=== PATIENT | female | born 1980 | race Caucasian/White ===

== ENCOUNTER 2017-11-25 22:21 | Emergency (ER) | payer MEDICAID ==
[~2017-11-25] VITALS: Ht 167.6 cm; Wt 56.0 kg
[~2017-11-25 22:21] MED LIST: ESCI10TA45 PO; NAPR-232 PO
[2017-11-25 22:32] VITALS: BP 139/71
== END 2017-11-26 01:27 | disposition left against medical advice (07) ==
LOC: ER 22:24
DX: R10.9 Unspecified abdominal pain (principal); Z53.21 Procedure and treatment not carried out due to patient leaving prior to being seen by health care provider

== ENCOUNTER 2017-11-27 17:09 | Emergency (ER) | payer MEDICAID ==
[~2017-11-27] VITALS: Ht 167.6 cm; Wt 56.1 kg
[2017-11-27 17:39] VITALS: BP 114/63
== END 2017-11-27 20:00 | disposition left against medical advice (07) ==
LOC: ER 17:10
DX: R51 Headache (principal); Z53.21 Procedure and treatment not carried out due to patient leaving prior to being seen by health care provider

== ENCOUNTER 2018-06-28 15:18 | Emergency (ER) | payer MEDICAID ==
[~2018-06-28] VITALS: Ht 167.6 cm; Wt 56.0 kg
[~2018-06-28 15:18] MED LIST changes: +MAGN296S50 PO
[2018-06-28 15:38] VITALS: BP 118/78
== END 2018-06-28 17:44 | disposition left against medical advice (07) ==
LOC: ER 15:19
DX: K59.00 Constipation, unspecified (principal); Z53.21 Procedure and treatment not carried out due to patient leaving prior to being seen by health care provider

== ENCOUNTER 2018-07-04 09:19 | Emergency (ER) | payer MEDICAID ==
[~2018-07-04] VITALS: Ht 167.6 cm; Wt 56.8 kg
[2018-07-04 09:25] VITALS: BP 148/59
[2018-07-04] MEDS ORDERED: ketorolac trometh inj. 60 MG/2 ML VIAL IM ONE (10:05)
[2018-07-04] MEDS ORDERED: IBUP-1984 PO (10:25)
[2018-07-04] MEDS ORDERED: PENI500T2 PO (10:25)
== END 2018-07-04 10:40 | disposition home or self-care (01) ==
LOC: ER 09:19
DX: J02.9 Acute pharyngitis, unspecified (principal); M25.551 Pain in right hip; F12.90 Cannabis use, unspecified, uncomplicated; F15.90 Other stimulant use, unspecified, uncomplicated; M79.18 Myalgia, other site; Z59.0 Homelessness; Z56.0 Unemployment, unspecified; Z98.890 Other specified postprocedural states; Z87.442 Personal history of urinary calculi; Z79.899 Other long term (current) drug therapy
CPT/HCPCS: 72040; 96372; 99283; J1885

== ENCOUNTER 2018-07-08 13:52 | Emergency (ER) | payer MEDICAID ==
[~2018-07-08] VITALS: Ht 167.6 cm; Wt 59.1 kg
[~2018-07-08 13:52] MED LIST changes: +IBUP-1984 PO; +PENI500T2 PO
[2018-07-08 14:03] VITALS: BP 111/64
[2018-07-08] MEDS ORDERED: aspirin 325mg tablet PO ONE (15:10)
[2018-07-08] MEDS ORDERED: acetaminophen 325mg tablet PO ONE (15:10)
[2018-07-08] MEDS ORDERED: ketorolac trometh inj. 60 MG/2 ML VIAL IM ONE (15:10)
[2018-07-08] MEDS ORDERED: diphenhydrAMINE 25mg capsule PO ONE (15:10)
[2018-07-08] MEDS ORDERED: proCHLORperazine 10 MG/2 ml inj IM ONE (15:10)
== END 2018-07-08 15:45 | disposition home or self-care (01) ==
LOC: ER 13:52
DX: R06.02 Shortness of breath (principal); R50.9 Fever, unspecified; R05 Cough; R09.81 Nasal congestion; F12.90 Cannabis use, unspecified, uncomplicated; F15.90 Other stimulant use, unspecified, uncomplicated; Z59.0 Homelessness; Z56.0 Unemployment, unspecified; Z98.890 Other specified postprocedural states; Z79.899 Other long term (current) drug therapy
CPT/HCPCS: 71045; 93005; 96372; 99283; J0780; J1885; Q0163

== ENCOUNTER 2018-09-28 04:30 | Emergency (ER) | payer MEDICAID ==
[~2018-09-28] VITALS: Ht 167.6 cm; Wt 60.3 kg
[~2018-09-28 04:30] MED LIST changes: -IBUP-1984 PO; -PENI500T2 PO
[2018-09-28 05:51] VITALS: BP 156/96
== END 2018-09-28 06:03 | disposition left against medical advice (07) ==
LOC: ER 04:31
DX: M79.671 Pain in right foot (principal); M79.672 Pain in left foot; Z53.21 Procedure and treatment not carried out due to patient leaving prior to being seen by health care provider

== ENCOUNTER 2019-03-14 18:44 | Emergency (ER) | payer MEDICAID ==
[~2019-03-14] VITALS: Ht 167.6 cm; Wt 56.8 kg
[2019-03-14 19:25] VITALS: BP 131/51
--- NOTE | 2019-03-14 19:25 | NUR ---
FOOT SOAKING IN BETADINE/WATER, PER PROVIDER'S REQUEST
[2019-03-14 19:50] LABS: BASOPHILS % (AUTO) 0.4 % (0-1); EOSINOPHILS # (AUTO) 0.1 X10'3 (0-0.9); EOSINOPHILS % (AUTO) 1.2 % (0-6); HEMATOCRIT 37.5 % (35.0-45.0); HEMOGLOBIN 12.8 g/dl (12.0-16.0); LYMPHOCYTES # (AUTO) 2.3 X10'3 (1.1-4.8); LYMPHOCYTES % (AUTO) 33.7 % (21-51); MEAN CORPUSCULAR HGB CONC 34.1 g/dL (33.0-36.5); MEAN PLATELET VOLUME 9.1 FL (7.4-10.4); MONOCYTES # (AUTO) 0.6 X10'3 (0-0.9); MONOCYTES % (AUTO) 8.7 % (2-12); NEUTROPHILS # (AUTO) 3.8 X10'3 (1.8-7.7); PLATELET COUNT 229 X10'3 (140-440); RED BLOOD COUNT 4.41 X10'6 (4.20-5.60); RED CELL DISTRIBUTION WIDTH 14.9 % (11.5-14.5); WHITE BLOOD COUNT 6.8 X10'3 (4.5-11.0)
[2019-03-14 19:55] LABS: ALBUMIN 3.7 G/DL (3.4-5.0); ANION GAP 12 (8-16); BLOOD UREA NITROGEN 10 MG/DL (7-18); BUN/CREATININE RATIO 11.2 (6.6-38.0); CALCIUM 8.8 MG/DL (8.5-10.1); CHLORIDE 104 MMOL/L (99-107); CREATININE 0.89 MG/DL (0.40-0.90); GLUCOSE 68 MG/DL (70-104); SODIUM 141 MMOL/L (135-145); TOTAL CARBON DIOXIDE 25.5 MMOL/L (24-32); eGFR 71 ML/MIN
[2019-03-14] MEDS ORDERED: CEPH-572 PO (20:02)
[2019-03-14] MEDS ORDERED: DOXY100C2 PO (20:02)
[2019-03-14] MEDS ORDERED: ACET-2119 PO (20:05)
[2019-03-14] MEDS ORDERED: IBUP-1984 PO (20:05)
== END 2019-03-14 20:15 | disposition home or self-care (01) ==
LOC: ER 18:45
DX: S91.104A Unspecified open wound of right lesser toe(s) without damage to nail, initial encounter (principal); L03.115 Cellulitis of right lower limb; F41.9 Anxiety disorder, unspecified; F32.9 Major depressive disorder, single episode, unspecified; F12.90 Cannabis use, unspecified, uncomplicated; F15.90 Other stimulant use, unspecified, uncomplicated; Z59.0 Homelessness; Z56.0 Unemployment, unspecified; Z87.442 Personal history of urinary calculi; Z98.890 Other specified postprocedural states; Z79.899 Other long term (current) drug therapy; W57.XXXA Bitten or stung by nonvenomous insect and other nonvenomous arthropods, initial encounter; Y93.89 Activity, other specified; Y92.89 Other specified places as the place of occurrence of the external cause; Y99.8 Other external cause status
CPT/HCPCS: 36415; 80048; 83605; 85025; 99283; 99284

== ENCOUNTER 2019-04-06 22:10 | Emergency (ER) | payer MEDICAID ==
[~2019-04-06] VITALS: Ht 167.6 cm; Wt 56.8 kg
[2019-04-06 22:13] VITALS: BP 124/80
[2019-04-06] MEDS ORDERED: CefTRIAXone 1000mg IM Kit (w/lidocaine diluent) IM ONE (22:35)
[2019-04-06] MEDS ORDERED: TETanus/Pertussis (Acell)/Diphther VAC/PF (Tdap-Adult) 0.5ml syringe IM ONE (22:35)
[2019-04-06] MEDS ORDERED: ketorolac trometh inj. 60 MG/2 ML VIAL IM ONE (22:35)
[2019-04-06 23:03] LABS: HEMOGLOBIN 12.8 g/dl (12.0-16.0)
[2019-04-06 23:04] LABS: BASOPHILS % (AUTO) 0.4 % (0-1); EOSINOPHILS # (AUTO) 0.2 X10'3 (0-0.9); EOSINOPHILS % (AUTO) 1.7 % (0-6); LYMPHOCYTES # (AUTO) 2.6 X10'3 (1.1-4.8); LYMPHOCYTES % (AUTO) 26.4 % (21-51); MEAN CORPUSCULAR HEMOGLOBIN 29.5 PG (27.0-31.0); MEAN CORPUSCULAR HGB CONC 34.4 g/dL (33.0-36.5); MEAN CORPUSCULAR VOLUME 85.6 FL (78-98); MEAN PLATELET VOLUME 8.5 FL (7.4-10.4); MONOCYTES # (AUTO) 0.7 X10'3 (0-0.9); MONOCYTES % (AUTO) 7.2 % (2-12); NEUTROPHILS # (AUTO) 6.4 X10'3 (1.8-7.7); NEUTROPHILS % (AUTO) 64.3 % (42-75); PLATELET COUNT 212 X10'3 (140-440); RED BLOOD COUNT 4.33 X10'6 (4.20-5.60); RED CELL DISTRIBUTION WIDTH 14.2 % (11.5-14.5)
[2019-04-06 23:12] LABS: ALANINE AMINOTRANSFERASE 23 U/L (12-78); ALBUMIN 3.5 G/DL (3.4-5.0); ALBUMIN/GLOBULIN RATIO 1.1 (1.1-1.5); ALKALINE PHOSPHATASE 70 IU/L (46-116); ANION GAP 7 (8-16); ASPARTATE AMINO TRANSFERASE 16 U/L (10-37); BILIRUBIN,TOTAL 0.2 MG/DL (0.1-1.0); BLOOD UREA NITROGEN 13 MG/DL (7-18); BUN/CREATININE RATIO 15.1 (6.6-38.0); CALCIUM 8.5 MG/DL (8.5-10.1); CHLORIDE 105 MMOL/L (99-107); CREATININE 0.86 MG/DL (0.40-0.90); GLUCOSE 108 MG/DL (70-104); POTASSIUM 3.9 MMOL/L (3.5-5.1); SODIUM 142 MMOL/L (135-145); TOTAL CARBON DIOXIDE 29.7 MMOL/L (24-32); TOTAL PROTEIN 6.6 G/DL (6.4-8.2); eGFR 74 ML/MIN
[2019-04-06] MEDS ORDERED: SULF1TAB49 PO (23:21)
== END 2019-04-06 23:46 | disposition home or self-care (01) ==
LOC: ER 22:11
DX: L03.115 Cellulitis of right lower limb (principal); F41.9 Anxiety disorder, unspecified; F32.9 Major depressive disorder, single episode, unspecified; K59.00 Constipation, unspecified; F12.90 Cannabis use, unspecified, uncomplicated; F15.90 Other stimulant use, unspecified, uncomplicated; Z98.890 Other specified postprocedural states; Z59.0 Homelessness; Z56.0 Unemployment, unspecified; Z79.899 Other long term (current) drug therapy
CPT/HCPCS: 36415; 73630; 80053; 85025; 90471; 90715; 96372; 99284; J0696; J1885

== ENCOUNTER 2019-04-21 04:12 | Emergency (ER) | payer MEDICAID ==
[~2019-04-21] VITALS: Ht 167.6 cm; Wt 56.8 kg
[2019-04-21 04:17] VITALS: BP 125/86
[2019-04-21] MEDS ORDERED: SULF1TAB49 PO (04:48)
== END 2019-04-21 05:08 | disposition home or self-care (01) ==
LOC: ER 04:13
DX: K13.0 Diseases of lips (principal); F12.90 Cannabis use, unspecified, uncomplicated; F15.90 Other stimulant use, unspecified, uncomplicated; Z59.0 Homelessness; Z56.0 Unemployment, unspecified; Z87.442 Personal history of urinary calculi; Z98.890 Other specified postprocedural states; Z79.899 Other long term (current) drug therapy
CPT/HCPCS: 99283

== ENCOUNTER 2019-04-21 23:39 | Emergency (ER) | payer MEDICAID ==
[~2019-04-21] VITALS: Ht 167.6 cm; Wt 56.8 kg
[~2019-04-21 23:39] MED LIST changes: +SULF1TAB49 PO
[2019-04-21 23:41] VITALS: BP 112/75
[2019-04-21] MEDS ORDERED: acetaminophen 325mg tablet PO ONE (23:55)
--- NOTE | 2019-04-22 00:03 | NUR ---
pt left without tylenol and dc instructions
== END 2019-04-22 00:04 | disposition home or self-care (01) ==
LOC: ER 23:39
DX: K13.0 Diseases of lips (principal); K08.89 Other specified disorders of teeth and supporting structures; F41.9 Anxiety disorder, unspecified; F12.90 Cannabis use, unspecified, uncomplicated; F15.90 Other stimulant use, unspecified, uncomplicated; Z87.442 Personal history of urinary calculi; Z56.0 Unemployment, unspecified; Z59.0 Homelessness; Z79.899 Other long term (current) drug therapy; Z79.2 Long term (current) use of antibiotics; W01.0XXA Fall on same level from slipping, tripping and stumbling without subsequent striking against object, initial encounter; Y93.89 Activity, other specified; Y92.89 Other specified places as the place of occurrence of the external cause; Y99.8 Other external cause status
CPT/HCPCS: 99284

== ENCOUNTER 2019-09-25 17:41 | Emergency (ER) | payer MEDICAID, OTHER ==
[~2019-09-25] VITALS: Ht 167.6 cm; Wt 53.0 kg
[~2019-09-25 17:41] MED LIST changes: -MAGN296S50 PO; +MAGN296S70 PO; -SULF1TAB49 PO
[2019-09-25 17:59] VITALS: BP 113/62
[2019-09-25] MEDS ORDERED: CEPH500C5 PO (18:46)
[2019-09-25] MEDS ORDERED: cephalexin 250mg capsule PO ONE (18:50)
[2019-09-26] MEDS ORDERED: ARIP10TA8 PO (14:54)
[2019-09-26] MEDS ORDERED: CLON0.1T PO (14:54)
[2019-09-26] MEDS ORDERED: FLUO40CA10 PO (14:54)
== END 2019-09-25 19:10 | disposition home or self-care (01) ==
LOC: ER 17:42
DX: S60.417A Abrasion of left little finger, initial encounter (principal); L03.114 Cellulitis of left upper limb; F12.90 Cannabis use, unspecified, uncomplicated; F15.90 Other stimulant use, unspecified, uncomplicated; F17.200 Nicotine dependence, unspecified, uncomplicated; Z59.0 Homelessness; Z56.0 Unemployment, unspecified; Z87.442 Personal history of urinary calculi; Z79.899 Other long term (current) drug therapy; W22.8XXA Striking against or struck by other objects, initial encounter; Y93.55 Activity, bike riding; Y92.413 State road as the place of occurrence of the external cause; Y99.9 Unspecified external cause status
CPT/HCPCS: 73130; 99283

== ENCOUNTER 2019-09-26 11:55 | Inpatient (IN) | payer MEDICAID, OTHER ==
[~2019-09-26] VITALS: Ht 167.6 cm; Wt 53.6 kg
[~2019-09-26 11:55] MED LIST changes: +CEPH500C5 PO
[2019-09-26 12:58] LABS: CLARITY,URINE SLIGHTLY CLOUDY (Clear); COLOR,URINE STRAW (Yellow); GLUCOSE, URINE NEGATIVE (Neg); KETONES,URINE NEGATIVE (Neg); LEUKOCYTE ESTERASE ,URINE NEGATIVE (Neg); NITRITES, URINE NEGATIVE (Neg); OCCULT BLOOD,URINE NEGATIVE (Neg); PROTEIN,URINE NEGATIVE (Neg); URINE HCG NEGATIVE (NEG); UROBILINOGEN,URINE 0.2 E.U/dL (0.2-1.0)
[2019-09-26 13:02] LABS: UA COLLECTION TYPE CLN CATCH MIDSTREAM
[2019-09-26 13:06] LABS: BACTERIA,URINE FEW /HPF (Neg); MUCUS STRANDS NONE SEEN /LPF (Neg); RBC,URINE 0-2 /HPF (0-2); SQUAMOUS EPITHELIAL CELL,UR MANY /LPF (FEW); WBC,URINE 0-4 /HPF (0-4)
--- NOTE | 2019-09-26 13:12 | NUR ---
PT IS 39 YO FEMALE C/O LEFT HAND SWELLING, PAIN, REDNESS HAS INCREASED OVER NIGHT, PT IS UNABLE TO FILL PRESCRIPTION FOR ANTIBIOTIC "I HAVE NO INSURANCE, NO ONE WILL HELP ME, I AM HOMELESS..." PT ALSO STATED SHE WOULD NOT BE ABLE TO GET ANTIBIOTICS PERIOD, USES METH "I JUST SMOKE IT...NO INJECTION", NO FEVER/CHILLS, NO N/V, WAITING TO BE EVALUATED,
[2019-09-26] MEDS ORDERED: CefTRIAXone 2gm/D5W 50ml 50 ML IV ONE (13:30)
[2019-09-26] MEDS ORDERED: morphine 4 MG/ML inj SYRINge IV ONE ×2 (13:30→15:50)
[2019-09-26] MEDS ORDERED: ondansetron/PF 4mg/2ml inj IV ONE (13:30)
[2019-09-26] MEDS ORDERED: vancomycin/NS 1 GM ADD-VANTAGE 250 ML IV ONE (13:30)
[2019-09-26] MEDS ORDERED: normal saline 1000ML IV soln IV ONE (13:30)
[2019-09-26 14:08] LABS: BASOPHILS % (AUTO) 0.4 % (0-1); EOSINOPHILS # (AUTO) 0.1 X10'3 (0-0.9); EOSINOPHILS % (AUTO) 0.8 % (0-6); HEMATOCRIT 40.5 % (35.0-45.0); HEMOGLOBIN 13.5 g/dl (12.0-16.0); LYMPHOCYTES # (AUTO) 1.4 X10'3 (1.1-4.8); LYMPHOCYTES % (AUTO) 12.8 % (21-51); MEAN CORPUSCULAR HEMOGLOBIN 28.1 PG (27.0-31.0); MEAN CORPUSCULAR HGB CONC 33.4 g/dL (33.0-36.5); MEAN CORPUSCULAR VOLUME 84.1 FL (78-98); MEAN PLATELET VOLUME 8.8 FL (7.4-10.4); MONOCYTES # (AUTO) 0.5 X10'3 (0-0.9); MONOCYTES % (AUTO) 4.6 % (2-12); NEUTROPHILS % (AUTO) 81.4 % (42-75); PLATELET COUNT 266 X10'3 (140-440); RED BLOOD COUNT 4.82 X10'6 (4.20-5.60); RED CELL DISTRIBUTION WIDTH 14.2 % (11.5-14.5)
--- NOTE | 2019-09-26 14:19 | NUR ---
gave pt ice pack per verbal order from Dr Justice, 1st liter NS infusing w/o, gave pt warm blanket
[2019-09-26 14:23] LABS: ALANINE AMINOTRANSFERASE 18 U/L (12-78); ALBUMIN 3.6 G/DL (3.4-5.0); ALKALINE PHOSPHATASE 84 IU/L (46-116); ANION GAP 7 (8-16); ASPARTATE AMINO TRANSFERASE 15 U/L (10-37); BILIRUBIN,TOTAL 0.3 MG/DL (0.1-1.0); BLOOD UREA NITROGEN 15 MG/DL (7-18); BUN/CREATININE RATIO 18.5 (6.6-38.0); CALCIUM 8.8 MG/DL (8.5-10.1); CHLORIDE 106 MMOL/L (99-107); CREATININE 0.81 MG/DL (0.40-0.90); GLUCOSE 88 MG/DL (70-104); MAGNESIUM 1.9 MG/DL (1.5-2.4); POTASSIUM 3.8 MMOL/L (3.5-5.1); SODIUM 143 MMOL/L (135-145); TOTAL PROTEIN 7.2 G/DL (6.4-8.2); eGFR 80 ML/MIN
[2019-09-26] MEDS ORDERED: CLON0.1T PO (14:54)
[2019-09-26] MEDS ORDERED: ARIP10TA8 PO (14:54)
[2019-09-26] MEDS ORDERED: FLUO40CA10 PO (14:54)
--- NOTE | 2019-09-26 15:11 | NUR ---
2nd liter NS infusing w/o
[2019-09-26] MEDS ORDERED: acetaminophen 325mg tablet PO PRN (15:50)
[2019-09-26] MEDS ORDERED: potassium CL 10mEq/100ml bag 100 ML IV PRN ×2 (15:50)
[2019-09-26] MEDS ORDERED: potassium Cl 20 mEq SR tablet PO PRN ×2 (15:50)
[2019-09-26] MEDS ORDERED: magnesium 2GM in 50ml NS 50 ML IV PRN (15:50)
[2019-09-26] MEDS ORDERED: magnesium 4gm in 100ml NS 100 ML IV PRN (15:50)
[2019-09-26] MEDS ORDERED: magnesium Cl slow-release 64mg tablet PO PRN (15:50)
[2019-09-26] MEDS ORDERED: morphine 2 MG/ML inj. syringe IV PRN (15:50)
[2019-09-26] MEDS ORDERED: ondansetron/PF 4mg/2ml inj IV PRN (15:50)
[2019-09-26] MEDS: HYDROcodone/acetaminophen 5mg/325mg tablet PO PRN ×2 (16:23→22:27)
--- NOTE | 2019-09-26 16:41 | NUR ---
pt eating yogurt, crackers and juice, maulik well, no n/v, pt is aware of plan of care, no questions
[2019-09-26] MEDS: normal saline 1000ml 1,000 ML IV SCH (16:55)
[2019-09-26] MEDS ORDERED: VANCOMYCIN 750MG IV in NS 250 ML IV SCH (17:00)
--- NOTE | 2019-09-26 17:49 | NUR ---
pt c/o pain to left hand 03/13, +cms to left fingers, radial pulse is strong and regular
--- NOTE | 2019-09-26 18:51 | NUR ---
report called to Lisa DUMONT
--- NOTE | 2019-09-26 19:15 | NUR ---
Received report from Rashida Cam RN. Patient to follow shortly.
--- NOTE | 2019-09-26 19:20 | NUR ---
Patient arrived to floor from ER with belongings in a W/C. Patient A&Ox4 c/o pain to left hand. Pt. has diagnoses of cellulitis to left hand.
[2019-09-26] MEDS ORDERED: K and/or MAG REPLACEMENT MC SCH (20:00)
[2019-09-26] MEDS ORDERED: cefepime 2gm inj IV SCH (20:00)
[2019-09-26] MEDS ORDERED: vancomycin/NS 1 GM ADD-VANTAGE 250 ML IV SCH (20:00)
[2019-09-26] MEDS ORDERED: CEFEPIME 2gm in D5W 50mL 50 ML IV SCH (20:00)
[2019-09-26] MEDS: morphine 2 MG/ML inj. syringe IV PRN (20:14)
[2019-09-26 22:00] VITALS: BP 116/69
[2019-09-27] MEDS: morphine 2 MG/ML inj. syringe IV PRN (00:14)
[2019-09-27] MEDS: normal saline 1000ml 1,000 ML IV SCH (01:46)
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
--- NOTE | 2019-09-27 03:50 | NUR ---
No transition of care given as pt. went AMA. Computer would not let me out of the d/c section w/o saying "yes".
[2019-09-28] MEDS ORDERED: VANCOMYCIN LEVEL IV ONE (04:30)
== END 2019-09-27 01:45 | disposition left against medical advice (07) | DRG 383 ==
LOC: ER 11:56 → ED HOLD 15:46 → ORTHO 4S 19:10
PROVIDERS: ADMIT Internal Medicine; ATTEND Internal Medicine
DX: L03.114 Cellulitis of left upper limb (principal); F15.90 Other stimulant use, unspecified, uncomplicated; F32.9 Major depressive disorder, single episode, unspecified; Z53.29 Procedure and treatment not carried out because of patient's decision for other reasons; F41.9 Anxiety disorder, unspecified; Z59.0 Homelessness; Z87.442 Personal history of urinary calculi; Z79.899 Other long term (current) drug therapy; Z71.51 Drug abuse counseling and surveillance of drug abuser
CPT/HCPCS: 36415; 80053; 81001; 81025; 83605; 83735; 84145; 85025; 87040; 87081; 96365; 96367; 96375; 99285; G0378; J0692; J0696; J2270; J2405; J3370; J7030

== ENCOUNTER 2019-10-04 05:31 | Emergency (ER) | payer MEDICAID, OTHER ==
[~2019-10-04] VITALS: Ht 167.6 cm; Wt 52.3 kg
[~2019-10-04 05:31] MED LIST changes: +ARIP10TA8 PO; -CEPH500C5 PO; +CLON0.1T PO; -ESCI10TA45 PO; +FLUO40CA10 PO; -MAGN296S70 PO; -NAPR-232 PO
[2019-10-04 06:18] LABS: BASOPHILS # (AUTO) 0.1 X10'3 (0-0.2); BASOPHILS % (AUTO) 0.9 % (0-1); EOSINOPHILS # (AUTO) 0.1 X10'3 (0-0.9); EOSINOPHILS % (AUTO) 2.3 % (0-6); HEMATOCRIT 38.4 % (35.0-45.0); HEMOGLOBIN 13.1 g/dl (12.0-16.0); LYMPHOCYTES # (AUTO) 2.3 X10'3 (1.1-4.8); LYMPHOCYTES % (AUTO) 37.1 % (21-51); MEAN CORPUSCULAR HEMOGLOBIN 28.3 PG (27.0-31.0); MEAN CORPUSCULAR HGB CONC 34.1 g/dL (33.0-36.5); MEAN CORPUSCULAR VOLUME 82.9 FL (78-98); MEAN PLATELET VOLUME 8.3 FL (7.4-10.4); MONOCYTES # (AUTO) 0.6 X10'3 (0-0.9); MONOCYTES % (AUTO) 9.5 % (2-12); NEUTROPHILS # (AUTO) 3.2 X10'3 (1.8-7.7); NEUTROPHILS % (AUTO) 50.2 % (42-75); PLATELET COUNT 338 X10'3 (140-440); RED BLOOD COUNT 4.64 X10'6 (4.20-5.60); RED CELL DISTRIBUTION WIDTH 13.7 % (11.5-14.5); WHITE BLOOD COUNT 6.3 X10'3 (4.5-11.0)
[2019-10-04 06:22] LABS: CLARITY,URINE CLEAR (Clear); COLOR,URINE YELLOW (Yellow); GLUCOSE, URINE NEGATIVE (Neg); KETONES,URINE NEGATIVE (Neg); LEUKOCYTE ESTERASE ,URINE NEGATIVE (Neg); NITRITES, URINE NEGATIVE (Neg); OCCULT BLOOD,URINE TRACE-INTACT (Neg); PROTEIN,URINE NEGATIVE (Neg); UROBILINOGEN,URINE 0.2 E.U/dL (0.2-1.0)
[2019-10-04 06:23] LABS: UA COLLECTION TYPE CLN CATCH MIDSTREAM
[2019-10-04] MEDS ORDERED: ampicillin/sulbac 3gm/NS 100ml 100 ML IV STA (06:24)
[2019-10-04] MEDS ORDERED: probenecid 500mg tablet PO ONE (06:25)
[2019-10-04 06:31] LABS: PARTIAL THROMBOPLASTIN TIME 29 SECONDS (22-32)
[2019-10-04 06:36] LABS: BACTERIA,URINE NONE SEEN /HPF (Neg); MUCUS STRANDS NONE SEEN /LPF (Neg); RBC,URINE NONE SEEN /HPF (0-2); SQUAMOUS EPITHELIAL CELL,UR FEW /LPF (FEW); WBC,URINE 0-4 /HPF (0-4)
[2019-10-04 06:44] LABS: ALANINE AMINOTRANSFERASE 31 U/L (12-78); ALKALINE PHOSPHATASE 73 IU/L (46-116); ANION GAP 11 (8-16); ASPARTATE AMINO TRANSFERASE 18 U/L (10-37); BILIRUBIN,TOTAL 0.2 MG/DL (0.1-1.0); BLOOD UREA NITROGEN 25 MG/DL (7-18); BUN/CREATININE RATIO 30.5 (6.6-38.0); CALCIUM 9.3 MG/DL (8.5-10.1); CHLORIDE 103 MMOL/L (99-107); CREATININE 0.82 MG/DL (0.40-0.90); GLUCOSE 86 MG/DL (70-104); POTASSIUM 3.7 MMOL/L (3.5-5.1); SODIUM 140 MMOL/L (135-145); TOTAL CARBON DIOXIDE 25.9 MMOL/L (24-32); TOTAL PROTEIN 8.2 G/DL (6.4-8.2); eGFR 78 ML/MIN
[2019-10-04 07:03] VITALS: BP 127/87
--- NOTE | 2019-10-04 07:04 | NUR ---
pt talkative. Pt states pain is about 3/10. left baby finger is numb.
[2019-10-04] MEDS ORDERED: CEPH500C5 PO (07:41)
[2019-10-04] MEDS ORDERED: EMOL78CR TOP (07:41)
[2019-10-04] MEDS ORDERED: TRIA15CR62 TOP (07:41)
[2019-10-04] MEDS ORDERED: BACDS PO (07:41)
== END 2019-10-04 08:44 | disposition home or self-care (01) ==
LOC: ER 05:32
DX: L03.114 Cellulitis of left upper limb (principal); F41.9 Anxiety disorder, unspecified; F32.9 Major depressive disorder, single episode, unspecified; F17.210 Nicotine dependence, cigarettes, uncomplicated; F12.90 Cannabis use, unspecified, uncomplicated; F15.10 Other stimulant abuse, uncomplicated; Z59.0 Homelessness; Z98.890 Other specified postprocedural states; Z56.0 Unemployment, unspecified; Z79.899 Other long term (current) drug therapy
CPT/HCPCS: 29130; 36415; 71045; 80053; 81001; 84145; 85025; 85610; 85730; 87040; 96365; 99284; J0295

== ENCOUNTER 2019-12-13 02:53 | Emergency (ER) | payer MEDICAID ==
[~2019-12-13] VITALS: Ht 167.6 cm; Wt 54.5 kg
[~2019-12-13 02:53] MED LIST changes: +CEPH500C5 PO; +EMOL78CR TOP
[2019-12-13] MEDS ORDERED: PERM60CR19 TOP (03:29)
[2019-12-13] MEDS ORDERED: CEPH-572 PO (03:29)
[2019-12-13] MEDS ORDERED: fluconazole 150mg tablet PO ONE (03:30)
[2019-12-13 03:48] VITALS: BP 111/65
== END 2019-12-13 03:50 | disposition home or self-care (01) ==
LOC: ER 02:54
DX: L03.317 Cellulitis of buttock (principal); B37.9 Candidiasis, unspecified; B86 Scabies; F41.9 Anxiety disorder, unspecified; F32.9 Major depressive disorder, single episode, unspecified; F12.90 Cannabis use, unspecified, uncomplicated; F15.90 Other stimulant use, unspecified, uncomplicated; Z87.442 Personal history of urinary calculi; Z98.890 Other specified postprocedural states; Z56.0 Unemployment, unspecified; Z59.0 Homelessness
CPT/HCPCS: 99283

== ENCOUNTER 2020-01-20 01:10 | Emergency (ER) | payer MEDICAID ==
[~2020-01-20] VITALS: Ht 167.6 cm; Wt 54.5 kg
[2020-01-20 01:17] VITALS: BP 129/82
[2020-01-20] MEDS ORDERED: METH-360 PO (01:42)
[2020-01-20] MEDS ORDERED: ketorolac tromethamine 15mg/ml inj. IM ONE (01:45)
== END 2020-01-20 01:40 | disposition home or self-care (01) ==
LOC: ER 01:11
DX: S16.1XXA Strain of muscle, fascia and tendon at neck level, initial encounter (principal); G89.29 Other chronic pain; F41.9 Anxiety disorder, unspecified; F32.9 Major depressive disorder, single episode, unspecified; F12.90 Cannabis use, unspecified, uncomplicated; F15.90 Other stimulant use, unspecified, uncomplicated; Z98.890 Other specified postprocedural states; Z59.0 Homelessness; Z56.0 Unemployment, unspecified; Z79.2 Long term (current) use of antibiotics; Z79.899 Other long term (current) drug therapy; X58.XXXA Exposure to other specified factors, initial encounter; Y93.89 Activity, other specified; Y92.89 Other specified places as the place of occurrence of the external cause; Y99.8 Other external cause status
CPT/HCPCS: 99283

== ENCOUNTER 2020-02-07 04:53 | Emergency (ER) | payer MEDICAID ==
[~2020-02-07] VITALS: Ht 167.6 cm; Wt 54.1 kg
[~2020-02-07 04:53] MED LIST changes: +METH-360 PO
[2020-02-07 05:01] VITALS: BP 132/83
[2020-02-07] MEDS ORDERED: naproxen 500mg tablet PO ONE (05:35)
[2020-02-07] MEDS ORDERED: HYDROcodone/acetaminophen 10/325mg tab PO ONE (05:35)
[2020-02-07] MEDS ORDERED: amox tr/potassium clavulanate 875/125mg TAB PO ONE (05:35)
[2020-02-07] MEDS ORDERED: AMOX-117 PO (05:40)
[2020-02-07] MEDS ORDERED: NAPR-56 PO (05:40)
== END 2020-02-07 06:02 | disposition home or self-care (01) ==
LOC: ER 04:53
DX: K04.7 Periapical abscess without sinus (principal); K02.9 Dental caries, unspecified; L03.211 Cellulitis of face; G89.29 Other chronic pain; F41.9 Anxiety disorder, unspecified; F32.9 Major depressive disorder, single episode, unspecified; F12.90 Cannabis use, unspecified, uncomplicated; F15.90 Other stimulant use, unspecified, uncomplicated; Z98.890 Other specified postprocedural states; Z59.0 Homelessness; Z56.0 Unemployment, unspecified; Z79.899 Other long term (current) drug therapy
CPT/HCPCS: 99284

== ENCOUNTER 2020-03-06 17:43 | Emergency (ER) | payer MEDICAID ==
[~2020-03-06] VITALS: Ht 167.6 cm; Wt 54.5 kg
[~2020-03-06 17:43] MED LIST changes: +NAPR-56 PO
[2020-03-06 17:59] VITALS: BP 129/76
== END 2020-03-06 20:30 | disposition left against medical advice (07) ==
LOC: ER 17:44
DX: S70.11XA Contusion of right thigh, initial encounter (principal); S30.0XXA Contusion of lower back and pelvis, initial encounter; M25.511 Pain in right shoulder; M25.571 Pain in right ankle and joints of right foot; G89.29 Other chronic pain; F41.9 Anxiety disorder, unspecified; F32.9 Major depressive disorder, single episode, unspecified; F17.200 Nicotine dependence, unspecified, uncomplicated; F12.90 Cannabis use, unspecified, uncomplicated; F15.90 Other stimulant use, unspecified, uncomplicated; Z87.442 Personal history of urinary calculi; Z59.0 Homelessness; Z56.0 Unemployment, unspecified; Z98.890 Other specified postprocedural states; Z79.899 Other long term (current) drug therapy; V23.4XXA Motorcycle driver injured in collision with car, pick-up truck or van in traffic accident, initial encounter; Y93.89 Activity, other specified; Y92.488 Other paved roadways as the place of occurrence of the external cause; Y99.8 Other external cause status
CPT/HCPCS: 71250; 73030; 73610; 74176; 99284

== ENCOUNTER 2020-05-24 20:43 | Emergency (ER) | payer MEDICAID ==
[~2020-05-24] VITALS: Ht 162.6 cm; Wt 57.3 kg
[~2020-05-24 20:43] MED LIST changes: -NAPR-56 PO
[2020-05-24 21:43] LABS: BASOPHILS % (AUTO) 0.5 % (0-1); EOSINOPHILS # (AUTO) 0.1 X10'3 (0-0.9); EOSINOPHILS % (AUTO) 1.9 % (0-6); HEMATOCRIT 36.8 % (35.0-45.0); HEMOGLOBIN 12.6 g/dl (12.0-16.0); LYMPHOCYTES # (AUTO) 2.1 X10'3 (1.1-4.8); LYMPHOCYTES % (AUTO) 32.2 % (21-51); MEAN CORPUSCULAR HEMOGLOBIN 29.2 PG (27.0-31.0); MEAN CORPUSCULAR HGB CONC 34.3 g/dL (33.0-36.5); MEAN CORPUSCULAR VOLUME 85.2 FL (78-98); MEAN PLATELET VOLUME 8.7 FL (7.4-10.4); MONOCYTES # (AUTO) 0.4 X10'3 (0-0.9); MONOCYTES % (AUTO) 6.7 % (2-12); NEUTROPHILS # (AUTO) 3.8 X10'3 (1.8-7.7); NEUTROPHILS % (AUTO) 58.7 % (42-75); PLATELET COUNT 218 X10'3 (140-440); RED BLOOD COUNT 4.32 X10'6 (4.20-5.60); RED CELL DISTRIBUTION WIDTH 13.6 % (11.5-14.5); WHITE BLOOD COUNT 6.5 X10'3 (4.5-11.0)
[2020-05-24 21:49] LABS: CLARITY,URINE SLIGHTLY CLOUDY (Clear); COLOR,URINE YELLOW (Yellow); GLUCOSE, URINE NEGATIVE (Neg); KETONES,URINE NEGATIVE (Neg); LEUKOCYTE ESTERASE ,URINE NEGATIVE (Neg); NITRITES, URINE NEGATIVE (Neg); OCCULT BLOOD,URINE NEGATIVE (Neg); PH,URINE 7.5 (4.8-8.0); PROTEIN,URINE NEGATIVE (Neg); UROBILINOGEN,URINE 0.2 E.U/dL (0.2-1.0)
[2020-05-24 21:50] LABS: UA COLLECTION TYPE CLN CATCH MIDSTREAM
[2020-05-24 21:52] LABS: BACTERIA,URINE NONE SEEN /HPF (Neg); RBC,URINE NONE SEEN /HPF (0-2); SQUAMOUS EPITHELIAL CELL,UR MODERATE /LPF (FEW); URINE HCG POSITIVE (NEG); WBC,URINE 0-4 /HPF (0-4)
[2020-05-24 21:57] LABS: ALANINE AMINOTRANSFERASE 17 U/L (12-78); ALBUMIN 3.6 G/DL (3.4-5.0); ALBUMIN/GLOBULIN RATIO 1.2 (1.1-1.5); ALKALINE PHOSPHATASE 55 IU/L (46-116); ANION GAP 4 (8-16); ASPARTATE AMINO TRANSFERASE 12 U/L (10-37); BILIRUBIN,TOTAL 0.3 MG/DL (0.1-1.0); BLOOD UREA NITROGEN 11 MG/DL (7-18); BUN/CREATININE RATIO 28.9 (6.6-38.0); CALCIUM 8.8 MG/DL (8.5-10.1); CHLORIDE 104 MMOL/L (99-107); CREATININE 0.38 MG/DL (0.40-0.90); GLUCOSE 86 MG/DL (70-104); LIPASE 101 U/L (73-393); POTASSIUM 3.4 MMOL/L (3.5-5.1); SODIUM 139 MMOL/L (135-145); TOTAL PROTEIN 6.6 G/DL (6.4-8.2); eGFR > 90 ML/MIN
[2020-05-24] MEDS ORDERED: MAGN100T6 PO (22:39)
[2020-05-24] MEDS ORDERED: DOCU100C40 PO (22:39)
[2020-05-25 20:38] VITALS: BP 123/70
== END 2020-05-24 22:47 | disposition home or self-care (01) ==
LOC: ER 20:44
DX: K59.00 Constipation, unspecified (principal); G89.29 Other chronic pain; F12.90 Cannabis use, unspecified, uncomplicated; F15.90 Other stimulant use, unspecified, uncomplicated; Z59.0 Homelessness; Z56.0 Unemployment, unspecified; Z79.899 Other long term (current) drug therapy
CPT/HCPCS: 36415; 80053; 81001; 81025; 83690; 85025; 93005; 99283; 99284

== ENCOUNTER 2020-06-09 14:22 | Emergency (ER) | payer MEDICAID ==
[~2020-06-09] VITALS: Ht 167.6 cm; Wt 60.0 kg
[~2020-06-09 14:22] MED LIST changes: +DOCU100C40 PO; +MAGN100T6 PO
[2020-06-09 16:05] LABS: CLARITY,URINE CLEAR (Clear); COLOR,URINE YELLOW (Yellow); GLUCOSE, URINE NEGATIVE (Neg); KETONES,URINE NEGATIVE (Neg); LEUKOCYTE ESTERASE ,URINE NEGATIVE (Neg); NITRITES, URINE NEGATIVE (Neg); OCCULT BLOOD,URINE NEGATIVE (Neg); PH,URINE 5.5 (4.8-8.0); PROTEIN,URINE NEGATIVE (Neg); UROBILINOGEN,URINE 0.2 E.U/dL (0.2-1.0)
[2020-06-09 16:06] LABS: URINE HCG POSITIVE (NEG)
[2020-06-09 16:10] LABS: UA COLLECTION TYPE CLN CATCH MIDSTREAM
[2020-06-09] MEDS ORDERED: magnesium citrate 296ml oral solution PO ONE (16:35)
--- NOTE | 2020-06-09 17:23 | NUR ---
US IN ROOM
[2020-06-09 19:14] VITALS: BP 117/69
== END 2020-06-09 19:16 | disposition home or self-care (01) ==
LOC: ER 14:23
DX: O26.899 Other specified pregnancy related conditions, unspecified trimester (principal); R10.2 Pelvic and perineal pain; K59.00 Constipation, unspecified; F41.9 Anxiety disorder, unspecified; F32.9 Major depressive disorder, single episode, unspecified; G89.29 Other chronic pain; M54.9 Dorsalgia, unspecified; K56.609 Unspecified intestinal obstruction, unspecified as to partial versus complete obstruction; Z79.899 Other long term (current) drug therapy; Z79.2 Long term (current) use of antibiotics; Z87.442 Personal history of urinary calculi
CPT/HCPCS: 36415; 76805; 81003; 81025; 84702; 93976; 99285

== ENCOUNTER 2020-10-09 19:36 | Emergency (ER) | payer MEDICAID ==
[~2020-10-09] VITALS: Ht 167.6 cm; Wt 81.8 kg
[~2020-10-09 19:36] MED LIST changes: -CEPH500C5 PO
[2020-10-09 19:46] VITALS: BP 116/60
[2020-10-09] MEDS ORDERED: ACET-2119 PO (21:17)
== END 2020-10-09 21:23 | disposition home or self-care (01) ==
LOC: ER 19:38
DX: J02.9 Acute pharyngitis, unspecified (principal); R05 Cough; G89.29 Other chronic pain; F41.9 Anxiety disorder, unspecified; F32.9 Major depressive disorder, single episode, unspecified; F17.200 Nicotine dependence, unspecified, uncomplicated; F12.90 Cannabis use, unspecified, uncomplicated; F15.90 Other stimulant use, unspecified, uncomplicated; Z87.442 Personal history of urinary calculi; Z98.890 Other specified postprocedural states; Z59.0 Homelessness; Z56.0 Unemployment, unspecified; Z88.8 Allergy status to other drugs, medicaments and biological substances; Z88.1 Allergy status to other antibiotic agents; Z79.899 Other long term (current) drug therapy
CPT/HCPCS: 99282

== ENCOUNTER 2022-07-23 04:06 | Emergency (ER) | payer MEDICAID ==
[~2022-07-23] VITALS: Ht 167.6 cm; Wt 68.2 kg
[~2022-07-23 04:06] MED LIST changes: +ARIP10TA14 PO; -ARIP10TA8 PO
[2022-07-23 04:11] VITALS: BP 141/83
--- NOTE | 2022-07-23 08:14 | NUR ---
At 0800, patient was notified that we were cleaning a room for her and we would get her to that room as soon as it was ready. At 0810, EMS arrives in the ambulance bay stating that we have a patient in the lobby that called 911 to transport her to [facility] for a code 3 transport. Patient was again educated regarding room availability and stated that she just wanted to leave. Room cleaned for patient at 0812. Patient left without being seen.
== END 2022-07-23 08:19 | disposition left against medical advice (07) ==
LOC: ER 04:06
DX: K59.00 Constipation, unspecified (principal); R11.0 Nausea; Z53.21 Procedure and treatment not carried out due to patient leaving prior to being seen by health care provider

== ENCOUNTER 2022-08-12 23:06 | Emergency (ER) | payer MEDICAID ==
--- NOTE | 2022-08-12 23:25 | NUR ---
CALLED PT TO TRIAGE . PT HOSTILE CALLING THIS RECORDER " A FUCKING BITCH , ASKING THIS RECORDER IF I NEED AN EKG OR MYLA MINS OR MY HEAD EXMINED " REDIRECTED PATIENT TO WHY SHE WAS AT THE ER TO BE SEEN . PT WITH A FLIGHT OF IDEAS AND SENTENCES THAT DID NOT MAKE SINCE . PT STATES SHE HAS KNUBNESS IN HER LEGS BUT CAN MOVE HER LEGS FREEELY . PT ALSO CONFITATIONAL WITH OTHER PERSONS IN THE LOBBY PT TAKEN TO ROOM 19 FOR EKG . PT HOSTILE AN DVERBALLLY ABUSIVE . ASKED PT TO STOP SPEAKING IN THAT TONE OR MANNOR OR SECUIRTY WILL BE CALLLED . PT THEN STATED " I AM LEAVING nOW " PT WHEELED HERSELF OUT OF THE ER LOBBY TO HER CAR AND LEFT HOSPTIAL PROPERTY
== END 2022-08-12 23:55 | disposition left against medical advice (07) ==
LOC: ER 23:07
DX: Z00.8 Encounter for other general examination (principal); Z53.21 Procedure and treatment not carried out due to patient leaving prior to being seen by health care provider

== ENCOUNTER 2022-09-08 23:49 | Emergency (ER) | payer MEDICAID | END 2022-09-09 00:12 | disposition left against medical advice (07) | LOC: ER 23:51 | DX: R10.9 Unspecified abdominal pain (principal); Z53.21 Procedure and treatment not carried out due to patient leaving prior to being seen by health care provider ==

== ENCOUNTER 2022-09-13 11:05 | Emergency (ER) | payer MEDICAID | END 2022-09-13 11:30 | disposition left against medical advice (07) | LOC: ER 11:06 | DX: R51.9 Headache, unspecified (principal); Z53.21 Procedure and treatment not carried out due to patient leaving prior to being seen by health care provider ==

== ENCOUNTER 2022-09-17 07:56 | Emergency (ER) | payer MEDICAID ==
[~2022-09-17] VITALS: Ht 162.6 cm; Wt 63.6 kg
[2022-09-17 08:01] VITALS: BP 113/73
== END 2022-09-17 10:29 | disposition left against medical advice (07) ==
LOC: ER 07:57
DX: R10.9 Unspecified abdominal pain (principal); Z53.21 Procedure and treatment not carried out due to patient leaving prior to being seen by health care provider

== ENCOUNTER 2022-09-18 12:38 | Emergency (ER) | payer MEDICAID ==
[~2022-09-18] VITALS: Ht 167.6 cm; Wt 63.0 kg
[2022-09-18 12:54] VITALS: BP 124/76
== END 2022-09-18 13:39 | disposition left against medical advice (07) ==
LOC: ER 12:41
DX: R10.9 Unspecified abdominal pain (principal); Z53.21 Procedure and treatment not carried out due to patient leaving prior to being seen by health care provider

== ENCOUNTER 2022-09-21 11:02 | Emergency (ER) | payer MEDICAID | END 2022-09-21 13:20 | disposition left against medical advice (07) | LOC: ER 11:03 | DX: R53.1 Weakness (principal); R52 Pain, unspecified; Z53.21 Procedure and treatment not carried out due to patient leaving prior to being seen by health care provider ==

== ENCOUNTER 2022-11-30 03:13 | Emergency (ER) | payer MEDICAID ==
[~2022-11-30] VITALS: Ht 167.6 cm; Wt 60.0 kg
[2022-11-30 04:32] VITALS: BP 128/77
== END 2022-11-30 04:35 | disposition home or self-care (01) ==
LOC: ER 03:14
DX: R10.9 Unspecified abdominal pain (principal); G89.29 Other chronic pain; F41.9 Anxiety disorder, unspecified; F32.9 Major depressive disorder, single episode, unspecified; F17.200 Nicotine dependence, unspecified, uncomplicated; F12.90 Cannabis use, unspecified, uncomplicated; F15.90 Other stimulant use, unspecified, uncomplicated; Z87.442 Personal history of urinary calculi; Z59.00 Homelessness unspecified; Z56.0 Unemployment, unspecified; Z88.8 Allergy status to other drugs, medicaments and biological substances; Z79.899 Other long term (current) drug therapy
CPT/HCPCS: 99281

== ENCOUNTER 2023-01-22 01:53 | Emergency (ER) | payer MEDICAID | END 2023-01-22 02:36 | disposition left against medical advice (07) | LOC: EEVIPCON 01:55 → ER 01:55 | DX: Z00.8 Encounter for other general examination (principal); Z53.21 Procedure and treatment not carried out due to patient leaving prior to being seen by health care provider ==

== ENCOUNTER 2023-01-23 05:09 | Emergency (ER) | payer MEDICAID ==
[~2023-01-23] VITALS: Ht 170.2 cm; Wt 55.0 kg
[2023-01-23 05:11] VITALS: BP 116/70
[2023-01-23 08:01] LABS: BASOPHILS # (AUTO) 0.1 X10'3 (0-0.2); BASOPHILS % (AUTO) 0.6 % (0-1); EOSINOPHILS # (AUTO) 0.3 X10'3 (0-0.9); EOSINOPHILS % (AUTO) 3.2 % (0-6); HEMATOCRIT 37.8 % (35.0-45.0); HEMOGLOBIN 12.4 g/dl (12.0-16.0); LYMPHOCYTES # (AUTO) 3.1 X10'3 (1.1-4.8); LYMPHOCYTES % (AUTO) 36.9 % (21-51); MEAN CORPUSCULAR HEMOGLOBIN 26.7 PG (27.0-31.0); MEAN CORPUSCULAR HGB CONC 32.8 g/dL (33.0-36.5); MEAN CORPUSCULAR VOLUME 81.3 FL (78-98); MEAN PLATELET VOLUME 9.6 FL (7.4-10.4); MONOCYTES # (AUTO) 0.7 X10'3 (0-0.9); MONOCYTES % (AUTO) 8.4 % (2-12); NEUTROPHILS # (AUTO) 4.2 X10'3 (1.8-7.7); NEUTROPHILS % (AUTO) 50.9 % (42-75); PLATELET COUNT 242 X10'3 (140-440); RED BLOOD COUNT 4.65 X10'6 (4.20-5.60); RED CELL DISTRIBUTION WIDTH 15.3 % (11.5-14.5); WHITE BLOOD COUNT 8.3 X10'3 (4.5-11.0)
[2023-01-23 08:02] LABS: CLARITY,URINE CLEAR (Clear); COLOR,URINE STRAW (Yellow); GLUCOSE, URINE NEGATIVE (Neg); KETONES,URINE NEGATIVE (Neg); LEUKOCYTE ESTERASE ,URINE NEGATIVE (Neg); NITRITES, URINE NEGATIVE (Neg); OCCULT BLOOD,URINE NEGATIVE (Neg); PROTEIN,URINE NEGATIVE (Neg); UROBILINOGEN,URINE 0.2 E.U/dL (0.2-1.0)
[2023-01-23 08:10] LABS: UA COLLECTION TYPE CLN CATCH MIDSTREAM
[2023-01-23 08:11] LABS: ALANINE AMINOTRANSFERASE 15 U/L (12-78); ALBUMIN 3.6 G/DL (3.4-5.0); ALBUMIN/GLOBULIN RATIO 1.2 (1.1-1.5); ALKALINE PHOSPHATASE 62 IU/L (46-116); ANION GAP 11 (8-16); ASPARTATE AMINO TRANSFERASE 15 U/L (10-37); BILIRUBIN,TOTAL 0.2 MG/DL (0.1-1.0); BLOOD UREA NITROGEN 17 MG/DL (7-18); BUN/CREATININE RATIO 26.2 (10.0-20.0); CHLORIDE 102 MMOL/L (99-107); CREATININE 0.65 MG/DL (0.40-0.90); GLUCOSE 102 MG/DL (70-104); LIPASE 71 U/L (73-393); POTASSIUM 3.9 MMOL/L (3.5-5.1); SODIUM 138 MMOL/L (135-145); TOTAL CARBON DIOXIDE 25.1 MMOL/L (24-32); TOTAL PROTEIN 6.5 G/DL (6.4-8.2); eGFR > 90 ML/MIN
== END 2023-01-23 09:28 | disposition home or self-care (01) ==
LOC: ER 05:09
DX: R10.32 Left lower quadrant pain (principal); K59.00 Constipation, unspecified; G89.29 Other chronic pain; F41.9 Anxiety disorder, unspecified; F32.9 Major depressive disorder, single episode, unspecified; F17.200 Nicotine dependence, unspecified, uncomplicated; F12.90 Cannabis use, unspecified, uncomplicated; F15.90 Other stimulant use, unspecified, uncomplicated; Z87.442 Personal history of urinary calculi; Z59.00 Homelessness unspecified; Z56.0 Unemployment, unspecified; Z98.890 Other specified postprocedural states; Z88.8 Allergy status to other drugs, medicaments and biological substances; Z79.899 Other long term (current) drug therapy
CPT/HCPCS: 36415; 74018; 80053; 81003; 83690; 85025; 99284

== ENCOUNTER 2023-01-24 19:31 | Emergency (ER) | payer MEDICAID ==
[~2023-01-24] VITALS: Ht 167.6 cm; Wt 54.5 kg
[2023-01-24 19:52] VITALS: BP 114/57
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
--- NOTE | 2023-01-24 20:19 | NUR ---
PT REQUESTED VISIT BE CONFIDENTIAL.
--- NOTE | 2023-01-24 20:39 | NUR ---
PT LWOBS FROM THE ER, PT STATED " IM GOING TO LEAVE AND BE SEEN AT A DIFFERENT HOSPITAL MY RIDE IS HERE".
--- NOTE | 2023-01-24 20:43 | NUR ---
SHAFABRIZIOOM INFORMED OF PATIENT LWOB.
== END 2023-01-24 20:43 | disposition left against medical advice (07) ==
LOC: ER 19:31 → EEVIPCON 19:31 → ER 20:43
DX: R51.9 Headache, unspecified (principal); M25.511 Pain in right shoulder; R68.84 Jaw pain; Z53.21 Procedure and treatment not carried out due to patient leaving prior to being seen by health care provider; Y08.89XA Assault by other specified means, initial encounter; Y93.89 Activity, other specified; Y92.89 Other specified places as the place of occurrence of the external cause; Y99.8 Other external cause status
CPT/HCPCS: 99281

== ENCOUNTER 2023-02-05 04:35 | Emergency (ER) | payer MEDICAID ==
[~2023-02-05] VITALS: Ht 170.2 cm; Wt 52.3 kg
[2023-02-05 04:46] VITALS: BP 117/74
[2023-02-05] MEDS ORDERED: LORazepam 1 MG tablet PO ONE (05:20)
[2023-02-05] MEDS ORDERED: acetaminophen 325mg tablet PO ONE (05:20)
--- NOTE | 2023-02-05 05:31 | NUR ---
I noticed the exam room door closed so I opened it and asked the patient if it was closed for a reason and she said yes because I want it closed. I advised her the door needs to remain open and she became very upset saying " This is my room and my right to close the door". I advised her no that was not the case and she continued to argue. Security was called and reinforced that the door needs to stay open, but she can draw the curtain.
--- NOTE | 2023-02-05 07:53 | NUR ---
LAB STATED PT WAS NOT IN ROOM WHEN LAB WENT TO DRAW HER AT 0715 - PT IS STILL NOT IN ROOM. PT ELOPED.
== END 2023-02-05 07:54 | disposition left against medical advice (07) ==
LOC: ER 04:35
DX: R00.0 Tachycardia, unspecified (principal); R11.0 Nausea; F17.200 Nicotine dependence, unspecified, uncomplicated; F12.90 Cannabis use, unspecified, uncomplicated; F15.20 Other stimulant dependence, uncomplicated; Z88.8 Allergy status to other drugs, medicaments and biological substances; Z59.00 Homelessness unspecified; Z56.0 Unemployment, unspecified
CPT/HCPCS: 99283

== ENCOUNTER 2023-03-31 01:12 | Emergency (ER) | payer MEDICAID ==
[~2023-03-31] VITALS: Ht 167.6 cm; Wt 53.8 kg
[2023-03-31 01:32] VITALS: BP 130/84; PULSE 100; RESP 18; TEMP 99; O2SAT 100
[2023-03-31 02:34] LABS: BASOPHILS # (AUTO) 0.1 X10'3 (0-0.2); EOSINOPHILS # (AUTO) 0.2 X10'3 (0-0.9); EOSINOPHILS % (AUTO) 3.2 % (0-6); HEMATOCRIT 37.3 % (35.0-45.0); HEMOGLOBIN 12.7 g/dl (12.0-16.0); LYMPHOCYTES % (AUTO) 48.9 % (21-51); MEAN CORPUSCULAR HEMOGLOBIN 27.7 PG (27.0-31.0); MEAN CORPUSCULAR VOLUME 81.4 FL (78-98); MONOCYTES # (AUTO) 0.4 X10'3 (0-0.9); MONOCYTES % (AUTO) 7.1 % (2-12); NEUTROPHILS # (AUTO) 2.5 X10'3 (1.8-7.7); NEUTROPHILS % (AUTO) 39.8 % (42-75); PLATELET COUNT 331 X10'3 (140-440); RED BLOOD COUNT 4.58 X10'6 (4.20-5.60); RED CELL DISTRIBUTION WIDTH 15.9 % (11.5-14.5); WHITE BLOOD COUNT 6.2 X10'3 (4.5-11.0)
[2023-03-31 02:40] LABS: ALANINE AMINOTRANSFERASE 12 U/L (12-78); ALBUMIN/GLOBULIN RATIO 1.1 (1.1-1.5); ALKALINE PHOSPHATASE 71 IU/L (46-116); ANION GAP 7 (8-16); ASPARTATE AMINO TRANSFERASE 15 U/L (10-37); BILIRUBIN,TOTAL 0.5 MG/DL (0.1-1.0); BLOOD UREA NITROGEN 17 MG/DL (7-18); BUN/CREATININE RATIO 19.1 (10.0-20.0); CHLORIDE 101 MMOL/L (99-107); CREATININE 0.89 MG/DL (0.40-0.90); GLUCOSE 93 MG/DL (70-104); LIPASE 74 U/L (73-393); POTASSIUM 3.5 MMOL/L (3.5-5.1); SODIUM 139 MMOL/L (135-145); TOTAL CARBON DIOXIDE 31.1 MMOL/L (24-32); TOTAL PROTEIN 7.6 G/DL (6.4-8.2); eCRCL 71 ML/MIN; eGFR 70 ML/MIN
== END 2023-03-31 04:03 | disposition left against medical advice (07) ==
LOC: ER 01:13
DX: R10.9 Unspecified abdominal pain (principal); Z53.21 Procedure and treatment not carried out due to patient leaving prior to being seen by health care provider
CPT/HCPCS: 80053; 83690; 85025; 99281

== ENCOUNTER 2023-06-11 03:13 | Emergency (ER) | payer MEDICAID | END 2023-06-11 04:40 | disposition left against medical advice (07) | LOC: ER 03:14 | DX: R39.89 Other symptoms and signs involving the genitourinary system (principal); Z53.21 Procedure and treatment not carried out due to patient leaving prior to being seen by health care provider ==

== ENCOUNTER 2023-06-21 09:30 | Emergency (ER) | payer MEDICAID ==
[~2023-06-21] VITALS: Ht 167.6 cm; Wt 58.2 kg
[2023-06-21 09:52] VITALS: BP 139/84; PULSE 97; RESP 16; TEMP 98.7; O2SAT 100
[2023-06-21 10:57] LABS: BASOPHILS % (AUTO) 0.4 % (0-1); EOSINOPHILS # (AUTO) 0.2 X10'3 (0-0.9); EOSINOPHILS % (AUTO) 2.8 % (0-6); HEMATOCRIT 37.7 % (35.0-45.0); HEMOGLOBIN 12.6 g/dl (12.0-16.0); LYMPHOCYTES # (AUTO) 2.4 X10'3 (1.1-4.8); LYMPHOCYTES % (AUTO) 41.3 % (21-51); MEAN CORPUSCULAR HEMOGLOBIN 27.1 PG (27.0-31.0); MEAN CORPUSCULAR HGB CONC 33.4 g/dL (33.0-36.5); MEAN CORPUSCULAR VOLUME 81.1 FL (78-98); MONOCYTES # (AUTO) 0.5 X10'3 (0-0.9); MONOCYTES % (AUTO) 7.9 % (2-12); NEUTROPHILS # (AUTO) 2.8 X10'3 (1.8-7.7); NEUTROPHILS % (AUTO) 47.6 % (42-75); PLATELET COUNT 284 X10'3 (140-440); RED BLOOD COUNT 4.65 X10'6 (4.20-5.60); RED CELL DISTRIBUTION WIDTH 14.7 % (11.5-14.5); WHITE BLOOD COUNT 5.9 X10'3 (4.5-11.0)
[2023-06-21 10:59] LABS: ALANINE AMINOTRANSFERASE 19 U/L (12-78); ALBUMIN 3.7 G/DL (3.4-5.0); ALBUMIN/GLOBULIN RATIO 1.1 (1.1-1.5); ALKALINE PHOSPHATASE 71 IU/L (46-116); ANION GAP 6 (8-16); ASPARTATE AMINO TRANSFERASE 15 U/L (10-37); BILIRUBIN,TOTAL 0.5 MG/DL (0.1-1.0); BLOOD UREA NITROGEN 12 MG/DL (7-18); BUN/CREATININE RATIO 15.8 (10.0-20.0); CALCIUM 8.7 MG/DL (8.5-10.1); CHLORIDE 102 MMOL/L (99-107); CREATININE 0.76 MG/DL (0.40-0.90); ETHANOL < 10 MG/DL (<10); GLUCOSE 89 MG/DL (70-104); LIPASE 34 U/L (16-77); POTASSIUM 3.8 MMOL/L (3.5-5.1); SODIUM 136 MMOL/L (135-145); TOTAL CARBON DIOXIDE 28.5 MMOL/L (24-32); TOTAL PROTEIN 7.1 G/DL (6.4-8.2); eCRCL 90 ML/MIN; eGFR 84 ML/MIN
--- NOTE | 2023-06-21 11:52 | NUR ---
WHEN PROVIDED WITH A URINE CUP PT HANDED IT BACK WITH LABEL RIPPED OFF AND COLD, COMPLETELY CLEAR LIQUID IN CUP AND SPECIMEN BAG. SPECIMEN DISCARDED, WILL ATTEMPT TO OBTAIN NEW URINE SAMPLE.
== END 2023-06-21 14:10 | disposition left against medical advice (07) ==
LOC: ER 09:32
DX: B82.9 Intestinal parasitism, unspecified (principal); Z53.21 Procedure and treatment not carried out due to patient leaving prior to being seen by health care provider
CPT/HCPCS: 36415; 80053; 80320; 83690; 85025; 99281

== ENCOUNTER 2023-06-26 10:45 | Emergency (ER) | payer MEDICAID ==
[~2023-06-26] VITALS: Ht 167.6 cm; Wt 56.2 kg
[2023-06-26 10:49] VITALS: BP 116/74; PULSE 103; RESP 16; TEMP 97.7; O2SAT 100
== END 2023-06-26 11:38 | disposition left against medical advice (07) ==
LOC: ER 10:46
DX: R10.9 Unspecified abdominal pain (principal); H53.9 Unspecified visual disturbance; Z53.21 Procedure and treatment not carried out due to patient leaving prior to being seen by health care provider
CPT/HCPCS: 99281

== ENCOUNTER 2023-07-01 12:33 | Emergency (ER) | payer MEDICAID ==
[~2023-07-01] VITALS: Ht 167.6 cm; Wt 56.7 kg
[2023-07-01 12:56] VITALS: BP 153/72; PULSE 81; RESP 18; O2SAT 98
[2023-07-01] MEDS ORDERED: IBUP-1984 PO (14:09)
--- NOTE | 2023-07-01 14:13 | NUR ---
PT LEFT THE ER WITHOUT ASSESSMENT AND HER D/C PAPERWORK.
[2023-07-01 14:18] VITALS: TEMP 98.2
== END 2023-07-01 14:20 | disposition home or self-care (01) ==
LOC: ER 12:34
DX: S80.12XA Contusion of left lower leg, initial encounter (principal); S50.02XA Contusion of left elbow, initial encounter; G89.29 Other chronic pain; M54.9 Dorsalgia, unspecified; F15.10 Other stimulant abuse, uncomplicated; F12.10 Cannabis abuse, uncomplicated; V19.88XA Pedal cyclist (driver) (passenger) injured in other specified transport accidents, initial encounter; Y93.89 Activity, other specified; Y92.89 Other specified places as the place of occurrence of the external cause; Y99.8 Other external cause status; Z59.00 Homelessness unspecified
CPT/HCPCS: 99282; J7030

== ENCOUNTER 2023-07-28 13:42 | Emergency (ER) | payer MEDICAID ==
[~2023-07-28] VITALS: Ht 167.6 cm; Wt 54.6 kg
[~2023-07-28 13:42] MED LIST changes: +IBUP-1984 PO
[2023-07-28 13:50] VITALS: BP 119/69; PULSE 108; TEMP 98.8; O2SAT 98
[2023-07-28 14:20] LABS: BASOPHILS # (AUTO) 0.1 X10'3 (0-0.2); BASOPHILS % (AUTO) 0.9 % (0-1); EOSINOPHILS # (AUTO) 0.2 X10'3 (0-0.9); EOSINOPHILS % (AUTO) 4.3 % (0-6); HEMATOCRIT 39.6 % (35.0-45.0); HEMOGLOBIN 12.6 g/dl (12.0-16.0); LYMPHOCYTES % (AUTO) 36.1 % (21-51); MEAN CORPUSCULAR HGB CONC 31.9 g/dL (33.0-36.5); MEAN CORPUSCULAR VOLUME 81.5 FL (78-98); MEAN PLATELET VOLUME 9.4 FL (7.4-10.4); MONOCYTES # (AUTO) 0.5 X10'3 (0-0.9); MONOCYTES % (AUTO) 8.6 % (2-12); NEUTROPHILS # (AUTO) 2.8 X10'3 (1.8-7.7); NEUTROPHILS % (AUTO) 50.1 % (42-75); PLATELET COUNT 299 X10'3 (140-440); RED BLOOD COUNT 4.86 X10'6 (4.20-5.60); RED CELL DISTRIBUTION WIDTH 14.9 % (11.5-14.5); WHITE BLOOD COUNT 5.6 X10'3 (4.5-11.0)
[2023-07-28 14:31] LABS: ALBUMIN 3.7 G/DL (3.4-5.0); ANION GAP 10 (8-16); BILIRUBIN,TOTAL 0.5 MG/DL (0.1-1.0); BLOOD UREA NITROGEN 10 MG/DL (7-18); BUN/CREATININE RATIO 13.3 (10.0-20.0); CALCIUM 8.8 MG/DL (8.5-10.1); CHLORIDE 106 MMOL/L (99-107); CREATININE 0.75 MG/DL (0.40-0.90); GLUCOSE 123 MG/DL (70-104); POTASSIUM 3.6 MMOL/L (3.5-5.1); SODIUM 141 MMOL/L (135-145); TOTAL CARBON DIOXIDE 25.1 MMOL/L (24-32); TOTAL PROTEIN 6.9 G/DL (6.4-8.2); eCRCL 85 ML/MIN; eGFR 85 ML/MIN
[2023-07-28 14:32] LABS: ALANINE AMINOTRANSFERASE 26 U/L (12-78); ALBUMIN/GLOBULIN RATIO 1.2 (1.1-1.5); ALKALINE PHOSPHATASE 63 IU/L (46-116); ASPARTATE AMINO TRANSFERASE 20 U/L (10-37); LIPASE 35 U/L (16-77)
[2023-07-28] MEDS ORDERED: ketorolac trometh. 30mg/ml inj. IM ONE (14:50)
[2023-07-28 14:59] VITALS: RESP 18
[2023-07-28] MEDS ORDERED: IBUP-1984 PO (14:59)
== END 2023-07-28 15:04 | disposition home or self-care (01) ==
LOC: ER 13:43
DX: R51.9 Headache, unspecified (principal); G89.29 Other chronic pain; F12.90 Cannabis use, unspecified, uncomplicated; F15.90 Other stimulant use, unspecified, uncomplicated; Z56.0 Unemployment, unspecified; Z87.442 Personal history of urinary calculi; Z88.8 Allergy status to other drugs, medicaments and biological substances
CPT/HCPCS: 36415; 80053; 83690; 85025; 96372; 99283; J1885

== ENCOUNTER 2023-10-10 21:29 | Emergency (ER) | payer MEDICAID ==
[~2023-10-10] VITALS: Ht 167.6 cm; Wt 55.0 kg
[~2023-10-10 21:29] MED LIST changes: -IBUP-1984 PO
[2023-10-10 21:39] VITALS: BP 133/84; PULSE 102; RESP 16; TEMP 98; O2SAT 100
[2023-10-10 22:34] LABS: BASOPHILS % (AUTO) 0.4 % (0-1); EOSINOPHILS # (AUTO) 0.2 X10'3 (0-0.9); EOSINOPHILS % (AUTO) 2.9 % (0-6); HEMATOCRIT 36.6 % (35.0-45.0); LYMPHOCYTES # (AUTO) 2.5 X10'3 (1.1-4.8); LYMPHOCYTES % (AUTO) 32.8 % (21-51); MEAN CORPUSCULAR HEMOGLOBIN 26.1 PG (27.0-31.0); MEAN CORPUSCULAR HGB CONC 32.8 g/dL (33.0-36.5); MEAN CORPUSCULAR VOLUME 79.5 FL (78-98); MEAN PLATELET VOLUME 9.5 FL (7.4-10.4); MONOCYTES # (AUTO) 0.5 X10'3 (0-0.9); MONOCYTES % (AUTO) 7.2 % (2-12); NEUTROPHILS # (AUTO) 4.3 X10'3 (1.8-7.7); NEUTROPHILS % (AUTO) 56.7 % (42-75); PLATELET COUNT 282 X10'3 (140-440); RED BLOOD COUNT 4.61 X10'6 (4.20-5.60); RED CELL DISTRIBUTION WIDTH 17.1 % (11.5-14.5); WHITE BLOOD COUNT 7.5 X10'3 (4.5-11.0)
[2023-10-10 22:35] LABS: URINE HCG NEGATIVE (NEG)
[2023-10-10 22:39] LABS: ALANINE AMINOTRANSFERASE 20 U/L (12-78); ALBUMIN 3.8 G/DL (3.4-5.0); ALBUMIN/GLOBULIN RATIO 1.2 (1.1-1.5); ALKALINE PHOSPHATASE 68 IU/L (46-116); ANION GAP 7 (8-16); ASPARTATE AMINO TRANSFERASE 17 U/L (10-37); BILIRUBIN,TOTAL 0.3 MG/DL (0.1-1.0); BLOOD UREA NITROGEN 14 MG/DL (7-18); BUN/CREATININE RATIO 18.2 (10.0-20.0); CALCIUM 8.3 MG/DL (8.5-10.1); CHLORIDE 104 MMOL/L (99-107); CREATININE 0.77 MG/DL (0.40-0.90); GLUCOSE 104 MG/DL (70-104); LIPASE 33 U/L (16-77); POTASSIUM 3.9 MMOL/L (3.5-5.1); SODIUM 140 MMOL/L (135-145); TOTAL CARBON DIOXIDE 28.8 MMOL/L (24-32); eCRCL 83 ML/MIN; eGFR 83 ML/MIN
[2023-10-11 00:02] LABS: BILIRUBIN,URINE NEGATIVE (Neg); CLARITY,URINE CLOUDY (Clear); COLOR,URINE YELLOW (Yellow); GLUCOSE, URINE NEGATIVE (Neg); KETONES,URINE NEGATIVE (Neg); LEUKOCYTE ESTERASE ,URINE NEGATIVE (Neg); NITRITES, URINE POSITIVE (Neg); OCCULT BLOOD,URINE NEGATIVE (Neg); PH,URINE 5.5 (4.8-8.0); PROTEIN,URINE NEGATIVE (Neg); UROBILINOGEN,URINE 0.2 E.U/dL (0.2-1.0)
[2023-10-11 01:49] LABS: UA COLLECTION TYPE CLN CATCH MIDSTREAM
[2023-10-11 04:01] LABS: BACTERIA,URINE 4+ /HPF (Neg); RBC,URINE NONE SEEN /HPF (0-2); WBC,URINE 0-4 /HPF (0-4)
[2023-10-11 04:02] LABS: CAL OXALATE CRYSTALS 3+ /HPF (NEGATIVE); MUCUS STRANDS FEW /LPF (Neg); SQUAMOUS EPITHELIAL CELL,UR MANY /LPF (FEW)
== END 2023-10-11 00:54 | disposition left against medical advice (07) ==
LOC: ER 21:30
DX: R10.9 Unspecified abdominal pain (principal); F12.90 Cannabis use, unspecified, uncomplicated; F15.90 Other stimulant use, unspecified, uncomplicated; Z88.4 Allergy status to anesthetic agent; Z79.899 Other long term (current) drug therapy
CPT/HCPCS: 36415; 80053; 81001; 81003; 81025; 83690; 85025; 99283

== ENCOUNTER 2023-12-01 00:13 | Emergency (ER) | payer MEDICAID ==
[~2023-12-01] VITALS: Ht 167.6 cm; Wt 60.0 kg
[2023-12-01 00:18] VITALS: BP 142/90; PULSE 103; RESP 16; TEMP 98.6; O2SAT 99
[2023-12-01 01:20] LABS: HCG SERUM QL NEGATIVE
== END 2023-12-01 01:45 | disposition left against medical advice (07) ==
LOC: ER 00:14
DX: F19.10 Other psychoactive substance abuse, uncomplicated (principal); F15.90 Other stimulant use, unspecified, uncomplicated; F12.90 Cannabis use, unspecified, uncomplicated; Z88.4 Allergy status to anesthetic agent; Z79.899 Other long term (current) drug therapy
CPT/HCPCS: 36415; 74018; 84703; 99284

== ENCOUNTER 2023-12-02 19:23 | Emergency (ER) | payer MEDICAID | END 2023-12-02 19:51 | disposition left against medical advice (07) | LOC: ER 19:24 | DX: R10.9 Unspecified abdominal pain (principal); Z53.21 Procedure and treatment not carried out due to patient leaving prior to being seen by health care provider ==

== ENCOUNTER 2023-12-10 20:39 | Emergency (ER) | payer MEDICAID ==
[~2023-12-10] VITALS: Ht 170.2 cm; Wt 68.2 kg
[2023-12-10 21:12] VITALS: BP 117/68; PULSE 88; RESP 14; O2SAT 99
[2023-12-10 21:33] LABS: HCG SERUM QL NEGATIVE
== END 2023-12-10 21:52 ==
LOC: ER 20:39
DX: Z00.8 Encounter for other general examination (principal); F41.9 Anxiety disorder, unspecified; F32.A Depression, unspecified; Z87.442 Personal history of urinary calculi; F15.90 Other stimulant use, unspecified, uncomplicated; F12.90 Cannabis use, unspecified, uncomplicated; Z59.00 Homelessness unspecified; Z56.0 Unemployment, unspecified; Z88.8 Allergy status to other drugs, medicaments and biological substances; Z79.899 Other long term (current) drug therapy
CPT/HCPCS: 36415; 74018; 84703; 99284

== ENCOUNTER → 2024-01-26 | Emergency (ER) | payer MEDICAID ==
[~2024-01-26] VITALS: Ht 165.1 cm; Wt 54.0 kg
[2024-01-26 12:41] VITALS: BP 138/113; PULSE 117; RESP 18; TEMP 97.8; O2SAT 98
== END | disposition left against medical advice (07) ==
LOC: ER 12:34
DX: T18.2XXA Foreign body in stomach, initial encounter (principal); Z53.21 Procedure and treatment not carried out due to patient leaving prior to being seen by health care provider; W44.8XXA Other foreign body entering into or through a natural orifice, initial encounter; Y93.89 Activity, other specified; Y92.89 Other specified places as the place of occurrence of the external cause; Y99.8 Other external cause status

== ENCOUNTER 2024-03-08 05:04 | Emergency (ER) | payer MEDICAID ==
[2024-03-08] MEDS ORDERED: CIPR250T26 PO (14:10)
== END 2024-03-08 05:54 | disposition left against medical advice (07) ==
LOC: ER 05:05
DX: Z00.00 Encounter for general adult medical examination without abnormal findings (principal); Z53.21 Procedure and treatment not carried out due to patient leaving prior to being seen by health care provider

== ENCOUNTER 2024-03-08 11:49 | Emergency (ER) | payer MEDICAID ==
[~2024-03-08] VITALS: Ht 165.1 cm; Wt 54.2 kg
[2024-03-08 13:04] LABS: BILIRUBIN,URINE NEGATIVE (Neg); CLARITY,URINE CLOUDY (Clear); COLOR,URINE YELLOW (Yellow); GLUCOSE, URINE NEGATIVE (Neg); KETONES,URINE NEGATIVE (Neg); LEUKOCYTE ESTERASE ,URINE NEGATIVE (Neg); NITRITES, URINE POSITIVE (Neg); OCCULT BLOOD,URINE LARGE (Neg); PH,URINE 5.5 (4.8-8.0); PROTEIN,URINE NEGATIVE (Neg); UROBILINOGEN,URINE 0.2 E.U/dL (0.2-1.0)
[2024-03-08 13:07] LABS: BASOPHILS % (AUTO) 0.6 % (0-1); EOSINOPHILS # (AUTO) 0.2 X10'3 (0-0.9); EOSINOPHILS % (AUTO) 2.8 % (0-6); HEMATOCRIT 37.5 % (35.0-45.0); HEMOGLOBIN 12.5 g/dl (12.0-16.0); LYMPHOCYTES # (AUTO) 2.4 X10'3 (1.1-4.8); LYMPHOCYTES % (AUTO) 33.9 % (21-51); MEAN CORPUSCULAR HEMOGLOBIN 27.2 PG (27.0-31.0); MEAN CORPUSCULAR HGB CONC 33.3 g/dL (33.0-36.5); MEAN CORPUSCULAR VOLUME 81.6 FL (78-98); MONOCYTES # (AUTO) 0.5 X10'3 (0-0.9); MONOCYTES % (AUTO) 7.1 % (2-12); NEUTROPHILS # (AUTO) 3.9 X10'3 (1.8-7.7); NEUTROPHILS % (AUTO) 55.6 % (42-75); PLATELET COUNT 276 X10'3 (140-440); RED CELL DISTRIBUTION WIDTH 16.4 % (11.5-14.5); UA COLLECTION TYPE VOIDED; WHITE BLOOD COUNT 6.9 X10'3 (4.5-11.0)
[2024-03-08 13:16] LABS: BACTERIA,URINE 3+ /HPF (Neg); CAL OXALATE CRYSTALS 4+ /HPF (NEGATIVE); MUCUS STRANDS MODERATE /LPF (Neg); SQUAMOUS EPITHELIAL CELL,UR MANY /LPF (FEW)
[2024-03-08 13:17] LABS: RBC,URINE 0-2 /HPF (0-2)
[2024-03-08 13:30] LABS: ALBUMIN 3.8 G/DL (3.4-5.0); ALBUMIN/GLOBULIN RATIO 1.2 (1.1-1.5); ALKALINE PHOSPHATASE 65 IU/L (46-116); ANION GAP 5 (8-16); ASPARTATE AMINO TRANSFERASE 15 U/L (10-37); BILIRUBIN,TOTAL 0.3 MG/DL (0.1-1.0); BLOOD UREA NITROGEN 16 MG/DL (7-18); BUN/CREATININE RATIO 20.8 (10.0-20.0); CALCIUM 8.7 MG/DL (8.5-10.1); CHLORIDE 105 MMOL/L (99-107); CREATININE 0.77 MG/DL (0.40-0.90); GLUCOSE 100 MG/DL (70-104); LIPASE 27 U/L (16-77); POTASSIUM 3.3 MMOL/L (3.5-5.1); SODIUM 139 MMOL/L (135-145); TOTAL CARBON DIOXIDE 29.5 MMOL/L (24-32); TOTAL PROTEIN 6.9 G/DL (6.4-8.2); eCRCL 81 ML/MIN; eGFR 82 ML/MIN
[2024-03-08 13:47] LABS: HCG SERUM QL NEGATIVE
[2024-03-08 13:56] LABS: ALANINE AMINOTRANSFERASE 17 U/L (12-78)
[2024-03-08] MEDS ORDERED: CIPR250T26 PO (14:10)
[2024-03-08] MEDS: FOSFOMYCIN TROMETHAMINE 3 GM PACKET PO ONE (14:33)
[2024-03-08 15:07] VITALS: BP 116/80; PULSE 75; RESP 14; TEMP 98; O2SAT 100
== END 2024-03-08 15:10 | disposition home or self-care (01) ==
LOC: ER 11:51
DX: N39.0 Urinary tract infection, site not specified (principal); G89.29 Other chronic pain; M54.9 Dorsalgia, unspecified; F41.9 Anxiety disorder, unspecified; F32.A Depression, unspecified; F15.90 Other stimulant use, unspecified, uncomplicated; F12.90 Cannabis use, unspecified, uncomplicated; Z91.040 Latex allergy status; Z79.1 Long term (current) use of non-steroidal anti-inflammatories (NSAID); Z79.2 Long term (current) use of antibiotics; Z79.899 Other long term (current) drug therapy
CPT/HCPCS: 36415; 76700; 80053; 81001; 83690; 84703; 85025; 99284

== ENCOUNTER 2024-07-24 13:50 | Emergency (ER) | payer MEDICAID ==
[~2024-07-24] VITALS: Ht 167.6 cm; Wt 62.1 kg
[2024-07-24 15:00] VITALS: BP 133/87; PULSE 103; RESP 16; TEMP 98; O2SAT 100
== END 2024-07-24 15:01 | disposition home or self-care (01) ==
LOC: ER 13:51
DX: Z00.00 Encounter for general adult medical examination without abnormal findings (principal); G89.29 Other chronic pain; F12.90 Cannabis use, unspecified, uncomplicated; F15.90 Other stimulant use, unspecified, uncomplicated; Z91.040 Latex allergy status; Z88.8 Allergy status to other drugs, medicaments and biological substances; Z79.899 Other long term (current) drug therapy
CPT/HCPCS: 99281

== ENCOUNTER 2024-09-08 13:38 | Emergency (ER) | payer MEDICAID ==
[~2024-09-08] VITALS: Ht 167.6 cm; Wt 59.5 kg
[2024-09-08 13:53] VITALS: BP 141/72; PULSE 86; RESP 18; TEMP 98.2; O2SAT 100
== END 2024-09-08 16:52 | disposition left against medical advice (07) ==
LOC: ER 13:39
DX: S61.412A Laceration without foreign body of left hand, initial encounter (principal); Z91.040 Latex allergy status; Z88.8 Allergy status to other drugs, medicaments and biological substances; X58.XXXA Exposure to other specified factors, initial encounter; Y93.89 Activity, other specified; Y92.89 Other specified places as the place of occurrence of the external cause; Y99.8 Other external cause status; Z53.21 Procedure and treatment not carried out due to patient leaving prior to being seen by health care provider
CPT/HCPCS: A6449

== ENCOUNTER 2024-09-08 21:09 | Emergency (ER) | payer MEDICAID ==
[~2024-09-08] VITALS: Ht 167.6 cm; Wt 59.8 kg
[2024-09-08 21:11] VITALS: BP 132/78; PULSE 101; RESP 15; TEMP 97.5; O2SAT 100
== END 2024-09-08 23:07 | disposition left against medical advice (07) ==
LOC: ER 21:09
DX: S61.432A Puncture wound without foreign body of left hand, initial encounter (principal); Z91.040 Latex allergy status; Z88.8 Allergy status to other drugs, medicaments and biological substances; X58.XXXA Exposure to other specified factors, initial encounter; Y93.89 Activity, other specified; Y92.89 Other specified places as the place of occurrence of the external cause; Y99.8 Other external cause status; Z53.21 Procedure and treatment not carried out due to patient leaving prior to being seen by health care provider

== ENCOUNTER 2024-10-14 21:30 | Emergency (ER) | payer MEDICAID ==
[~2024-10-14] VITALS: Ht 167.6 cm; Wt 61.4 kg
[2024-10-15 06:10] LABS: URINE HCG NEGATIVE (NEG)
[2024-10-15 06:11] LABS: BILIRUBIN,URINE NEGATIVE (Neg); CLARITY,URINE SLIGHTLY CLOUDY (Clear); COLOR,URINE YELLOW (Yellow); GLUCOSE, URINE NEGATIVE (Neg); KETONES,URINE NEGATIVE (Neg); LEUKOCYTE ESTERASE ,URINE NEGATIVE (Neg); NITRITES, URINE NEGATIVE (Neg); OCCULT BLOOD,URINE MODERATE (Neg); PH,URINE 5.5 (4.8-8.0); PROTEIN,URINE NEGATIVE (Neg); UROBILINOGEN,URINE 0.2 E.U/dL (0.2-1.0)
[2024-10-15 06:15] LABS: UA COLLECTION TYPE CLN CATCH MIDSTREAM
[2024-10-15 06:16] LABS: BACTERIA,URINE FEW /HPF (Neg); MUCUS STRANDS MODERATE /LPF (Neg); RBC,URINE 0-2 /HPF (0-2); SQUAMOUS EPITHELIAL CELL,UR MANY /LPF (FEW); WBC,URINE 0-4 /HPF (0-4)
[2024-10-15 06:25] LABS: URINE AMPHETAMINE SCREEN POSITIVE (Neg); URINE BARBITUATE SCREEN NEGATIVE (Neg); URINE BENZODIAZEPINES SCREEN NEGATIVE (Neg); URINE CANNABINOID SCREEN NEGATIVE (Neg); URINE COCAINE SCREEN NEGATIVE (Neg); URINE METHADONE SCREEN NEGATIVE (Neg); URINE OPIATE SCREEN NEGATIVE (Neg); URINE PHENCYCLIDINE SCREEN NEGATIVE (Neg)
[2024-10-15 07:32] VITALS: BP 105/53; PULSE 93; RESP 16; TEMP 98.2; O2SAT 99
== END 2024-10-15 07:36 | disposition home or self-care (01) ==
LOC: ER 21:31
DX: R10.84 Generalized abdominal pain (principal); G89.29 Other chronic pain; M54.9 Dorsalgia, unspecified; F41.9 Anxiety disorder, unspecified; F32.A Depression, unspecified; F12.90 Cannabis use, unspecified, uncomplicated; F15.90 Other stimulant use, unspecified, uncomplicated; F17.200 Nicotine dependence, unspecified, uncomplicated; Z59.00 Homelessness unspecified; Z56.0 Unemployment, unspecified; Z87.442 Personal history of urinary calculi; Z91.040 Latex allergy status; Z79.899 Other long term (current) drug therapy
CPT/HCPCS: 74018; 80305; 81001; 81025; 99285

== ENCOUNTER 2024-12-26 08:56 | Emergency (ER) | payer SELFPAY ==
[~2024-12-26] VITALS: Ht 167.6 cm; Wt 64.2 kg
[2024-12-26 08:59] VITALS: BP 131/84; PULSE 113; RESP 16; TEMP 98; O2SAT 98
--- NOTE | 2024-12-26 10:40 | VISIT NOTE ---
ED Rapid Medical Assessment History 44-year-old female reports ER with chief complaint of abdominal pain and chronic bowel incontinence. Patient states that she would like to have a full workup performed due to increase in her abdominal pain. Denies fevers or chills. Denies dysuria hematuria. No other complaints at this time Exam: General: Well developed, well nourished, no distress. Respiratory: Lungs clear, no respiratory distress. Chest: No accessory muscle use, nontender. Cardiovascular: Regular rate and rhythm. Gastrointestinal: Soft, nontender, nondistended. Bowel sounds present. Extremities: Normal range of motion, nontender, normal capillary refill, no deformity. Neurologic: Oriented x4. Distal gross motor and sensory intact all four extremities. Moves all 4 extremities spontaneously. Psychiatric: Normal mood and affect. Assessment and Plan I have introduced myself to the patient and obtained a limited history and physical. I have explained that further studies may need to be obtained to reach an accurate diagnosis. Studies have been ordered consistent with the patient's chief complaint. Patient understands and wishes to proceed. Patient appears medically stable and not requiring emergent management at this time. KIMBERLY GUZMAN December 26, 2024 10:40
== END 2024-12-26 13:25 | disposition left against medical advice (07) ==
LOC: ER 08:58 → MERGE 08:58 → ER 13:25
DX: R10.84 Generalized abdominal pain (principal); Z53.21 Procedure and treatment not carried out due to patient leaving prior to being seen by health care provider; Z88.8 Allergy status to other drugs, medicaments and biological substances

== ENCOUNTER 2025-02-13 20:43 | Emergency (ER) | payer SELFPAY ==
[~2025-02-13] VITALS: Ht 167.6 cm; Wt 65.0 kg
[2025-02-13 20:46] VITALS: BP 135/97; PULSE 134; RESP 24; TEMP 98; O2SAT 95
== END 2025-02-13 22:50 | disposition left against medical advice (07) ==
LOC: ER 20:44
DX: Z00.8 Encounter for other general examination (principal); Z91.040 Latex allergy status; Z88.8 Allergy status to other drugs, medicaments and biological substances; Z53.21 Procedure and treatment not carried out due to patient leaving prior to being seen by health care provider